=== PATIENT | female | born 1995 | race Caucasian/White ===

== ENCOUNTER → 2016-11-23 | Outpatient (CLI) | payer OTHER ==
--- NOTE | 2016-11-24 09:00 | US ---
EXAMINATION TYPE: US pelvic complete DATE OF EXAM: 11/23/2016 COMPARISON: Pelvic ultrasound 12/09/2012 CLINICAL HISTORY: R10.2 Pelvic Pain. Pelvic pain, worse on the left. Irregular menses TECHNIQUE: Transabdominal (TA) Date of LMP: 11/23/16 EXAM MEASUREMENTS: Uterus: 7.7 x 3.0 x 4.0 cm Endometrial Stripe: 0.7 cm Right Ovary: 4.8 x 2.0 x 2.5 cm Left Ovary: 4.5 x 1.5 x 3.3 cm 1. Uterus: Anteverted wnl 2. Endometrium: appears wnl 3. Right Ovary: follicles noted 4. Left Ovary: dominant follicle = 1.9 x 1.3 x 1.5cm 5. Bilateral Adnexa: small amount of free fluid left adnexa 6. Posterior cul-de-sac: appears wnl IMPRESSION: Left ovarian cystic focus may represent involuting follicle or hemorrhagic cyst, follow-u p as indicated.
== END | disposition home or self-care (01) ==
LOC: RADUSMAIN 18:14
PROVIDERS: ATTEND Internal Medicine
DX: N83.202 Unspecified ovarian cyst, left side (principal)
CPT/HCPCS: 76856

== ENCOUNTER 2021-04-12 14:35 | Emergency (ER) | payer SELFPAY ==
[2021-04-12 15:52] VITALS: TEMP 98.4
[2021-04-12 16:15] LABS: HCT 40.5 % (34.0-46.0); HGB 13.7 gm/dL (11.4-16.0); MCH 30.1 pg (25.0-35.0); MCHC 33.9 g/dL (31.0-37.0); MCV 88.9 fL (80.0-100.0); Mean Platelet Volume 7.4; Platelet Count 297 k/uL (150-450); RBC 4.55 m/uL (3.80-5.40); RDW 11.9 % (11.5-15.5); WBC 8.9 k/uL (3.8-10.6)
[2021-04-12 16:44] LABS: ALT 12 U/L (4-34); AST 23 U/L (14-36); African American GFR (CKD) >90 (>60 ml/min/1.73 sqM); Albumin 4.2 g/dL (3.5-5.0); Alkaline Phosphatase 58 U/L (38-126); Anion Gap 8 mmol/L; Blood Urea Nitrogen 6 mg/dL (7-17); Calcium 9.6 mg/dL (8.4-10.2); Carbon Dioxide 24 mmol/L (22-30); Chloride 107 mmol/L (98-107); Glucose 96 mg/dL (74-99); Non-African American GFR(CKD) >90 (>60 ml/min/1.73 sqM); Potassium 4.5 mmol/L (3.5-5.1); Sodium 139 mmol/L (137-145); Total Bilirubin 1.3 mg/dL (0.2-1.3)
--- NOTE | 2021-04-12 17:14 | ED ---
General Adult HPI - General Chief complaint: Vaginal Bleeding Stated complaint: Poss Miscarriage Time Seen by Provider: 04/12/21 17:00 Source: patient, family, RN notes reviewed, old records reviewed Mode of arrival: ambulatory Limitations: no limitations - History of Present Illness Initial comments: 25-year-old female, alert and oriented 4, presents to the emergency room with complaints of vaginal spotting since Wednesday with increased vaginal bleeding this morning, bleeding through a pad and her pants while in waiting room. She states that the blood is bright red in color. She did have an appointment with her primary care doctor this past week for confirmation of which was canceled due to the vaginal bleeding. She states the pain is left-sided and cramping in nature. Patient is a . She states she has no history of sexual transmitted infections, no dysuria. She does smoke marijuana, vape and smokes cigarettes which she states recently quit. No medications on a daily basis. She does have history of asthma. -: days(s) (5) Location: pelvis, left Severity scale (1-10): 7 Quality: other (cramping) Improves with: none Worsens with: none Associated Symptoms: other (Vaginal bleeding) Treatments Prior to Arrival: none - Related Data Home Medications Medication Instructions Recorded Confirmed [id number] Acid 1 cap PO TID 04/12/21 04/12/21 [-U Capsule (formulary)] Allergies Allergy/AdvReac Type Severity Reaction Status Date / Time cefuroxime axetil AdvReac Unknown Verified 04/12/21 19:42 [From Ceftin] Penicillins AdvReac Unknown Verified 04/12/21 19:42 Review of Systems ROS Statement: Those systems with pertinent positive or pertinent negative responses have been documented in the HPI. ROS Other: All systems not noted in ROS Statement are negative. Past Medical History Past Medical History: Asthma History of Any Multi-Drug Resistant Organisms: None Reported Past Surgical History: No Surgical Hx Reported Past Psychological History: No Psychological Hx Reported Smoking Status: Current every day smoker Past Alcohol Use History: None Reported Past Drug Use History: Marijuana General Exam Limitations: no limitations General appearance: alert, in no apparent distress Head exam: Present: atraumatic, normocephalic, normal inspection Eye exam: Present: normal appearance, EOMI ENT exam: Present: mucous membranes moist Neck exam: Present: normal inspection, full ROM. Absent: tenderness, meningismus, lymphadenopathy Respiratory exam: Present: normal lung sounds bilaterally. Absent: respiratory distress, wheezes, rales, rhonchi, stridor, chest wall tenderness, accessory muscle use Cardiovascular Exam: Present: normal rhythm, bradycardia, normal heart sounds. Absent: systolic murmur, diastolic murmur, rubs, gallop, clicks, JVD GI/Abdominal exam: Present: soft, tenderness (Left lower adnexal), normal bowel sounds. Absent: distended, guarding, rebound, rigid Extremities exam: Present: normal inspection, full ROM, normal capillary refill. Absent: tenderness, pedal edema, joint swelling, calf tenderness Neurological exam: Present: alert, oriented X3 Psychiatric exam: Present: anxious Skin exam: Present: warm, dry, intact, normal color. Absent: rash, cyanosis, diaphoretic, petechiae, pallor Course Vital Signs 04/12/21 04/12/21 04/12/21 15:49 18:14 21:58 Temperature 98.4 F Pulse Rate 49 L 62 68 Respiratory 16 18 18 Rate Blood Pressure 125/72 122/70 133/70 O2 Sat by Pulse 100 100 100 Oximetry - Reevaluation(s) Reevaluation #1: 04/12/21 18:46 Patient states she sees feeling better after Tylenol, cramping has diminished. Awaiting to go to ultrasound. Time: 18:40 Medical Decision Making - Medical Decision Making 25-year-old female presents to the emergency room with complaints of vaginal spotting since Wednesday with increased vaginal bleeding this morning. She states the pain is left-sided and cramping in nature. Patient is a . Serum hCG is 28. Hemoglobin and hematocrit are stable. Blood type is A+. Ultrasound shows a uterus that is empty, no evidence of gestational sac. There is no adnexal masses. There is no ectopic at this time. Patient states that she was bleeding heavily today and did pass a large clot. Patient states that the cramping is decreased and the bleeding has slowed to minimal. Her abdomen is soft and minimally tender left lower quadrant. This is likely a complete . Patient was given a prescription for a serum Quant redrawn in 48 hour s. Directed to follow up with her primary care doctor. Return to the emergency room with any new or worsening symptoms including increased pain, fevers or increased bleeding. Increase her fluid intake. Case discussed with Dr. Gomez - Lab Data Result diagrams: 04/12/21 16:05 04/12/21 16:05 Lab Results 04/12/21 04/12/21 04/12/21 Range/Units 16:05 16:05 16:05 WBC 8.9 (3.8-10.6) k/uL RBC 4.55 (3.80-5.40) m/uL Hgb 13.7 (11.4-16.0) gm/dL Hct 40.5 (34.0-46.0) % MCV 88.9 (80.0-100.0) fL MCH 30.1 (25.0-35.0) pg MCHC 33.9 (31.0-37.0) g/dL RDW 11.9 (11.5-15.5) % Plt Count 297 (150-450) k/uL MPV 7.4 Sodium 139 (137-145) mmol/L Potassium 4.5 (3.5-5.1) mmol/L Chloride 107 (98-107) mmol/L Carbon Dioxide 24 (22-30) mmol/L Anion Gap 8 mmol/L BUN 6 L (7-17) mg/dL Creatinine 0.69 (0.52-1.04) mg/dL Est GFR (CKD-EPI)AfAm >90 (>60 ml/min/1.73 sqM) Est GFR (CKD-EPI)NonAf >90 (>60 ml/min/1.73 sqM) Glucose 96 (74-99) mg/dL Calcium 9.6 (8.4-10.2) mg/dL Total Bilirubin 1.3 (0.2-1.3) mg/dL AST 23 (14-36) U/L ALT 12 (4-34) U/L Alkaline Phosphatase 58 (38-126) U/L Total Protein 7.0 (6.3-8.2) g/dL Albumin 4.2 (3.5-5.0) g/dL HCG, Quant mIU/mL Urine Color Urine Appearance (Clear) Urine pH (5.0-8.0) Ur Specific [place] (1.001-1.035) Urine Protein (Negative) Urine Glucose (UA) (Negative) Urine Ketones (Negative) Urine Blood (Negative) Urine Nitrite (Negative) Urine Bilirubin (Negative) Urine Urobilinogen (<2.0) mg/dL Ur Leukocyte Esterase (Negative) Urine RBC (0-5) /hpf Urine WBC (0-5) /hpf Ur Squamous Epith Cells (0-4) /hpf Urine Bacteria (None) /hpf Urine Mucus (None) /hpf Urine HCG, Qual (Not Detectd) Blood Type A Positive Blood Type Recheck No Previous Record Bld Type Recheck Status [facility] ONLY 04/12/21 04/12/21 04/12/21 Range/Units 16:05 17:54 17:54 WBC (3.8-10.6) k/uL RBC (3.80-5.40) m/uL Hgb (11.4-16.0) gm/dL Hct (34.0-46.0) % MCV (80.0-100.0) fL MCH (25.0-35.0) pg MCHC (31.0-37.0) g/dL RDW (11.5-15.5) % Plt Count (150-450) k/uL MPV Sodium (137-145) mmol/L Potassium (3.5-5.1) mmol/L Chloride (98-107) mmol/L Carbon Dioxide (22-30) mmol/L Anion Gap mmol/L BUN (7-17) mg/dL Creatinine (0.52-1.04) mg/dL Est GFR (CKD-EPI)AfAm (>60 ml/min/1.73 sqM) Est GFR (CKD-EPI)NonAf (>60 ml/min/1.73 sqM) Glucose (74-99) mg/dL Calcium (8.4-10.2) mg/dL Total Bilirubin (0.2-1.3) mg/dL AST (14-36) U/L ALT (4-34) U/L Alkaline Phosphatase (38-126) U/L Total Protein (6.3-8.2) g/dL Albumin (3.5-5.0) g/dL HCG, Quant 27.8 mIU/mL Urine Color Light Yellow Urine Appearance Clear (Clear) Urine pH 6.0 (5.0-8.0) Ur Specific [place] 1.006 (1.001-1.035) Urine Protein Negative (Negative) Urine Glucose (UA) Negative (Negative) Urine Ketones Negative (Negative) Urine Blood Large H (Negative) Urine Nitrite Negative (Negative) Urine Bilirubin Negative (Negative) Urine Urobilinogen <2.0 (<2.0) mg/dL Ur Leukocyte Esterase Negative (Negative) Urine RBC 1 (0-5) /hpf Urine WBC <1 (0-5) /hpf Ur Squamous Epith Cells <1 (0-4) /hpf Urine Bacteria Rare H (None) /hpf Urine Mucus Rare H (None) /hpf Urine HCG, Qual Detected (Not Detectd) Blood Type Blood Type Recheck Bld Type Recheck Status Disposition Clinical Impression: Complete Clinical Impression: (Ruled Out): UTI (urinary tract infection) Disposition: HOME SELF-CARE Condition: Good Additional Instructions: Increase your fluid intake and follow-up with your primary care doctor next week. Return to the emergency room with any new or worsening symptoms. Is patient prescribed a controlled substance at d/c from ED?: No Referrals: None,Stated [Primary Care Provider] - 1-2 days Time of Disposition: 21:17
[2021-04-12] MEDS: ACETAMINOPHEN TAB 500 MG TAB PO STA (18:10)
[2021-04-12] MEDS: SODIUM CHLORIDE 0.9% 500 ML 500 ML IV STA (18:12)
[2021-04-12 18:16] VITALS: RESP 18
[2021-04-12 18:19] LABS: Appearance,Urine Clear (Clear); Bacteria,Urine Rare /hpf; Bilirubin,Urine Negative (Negative); Blood,Urine Large (Negative); Color,Urine Light Yellow; Glucose,Urine (UA) Negative (Negative); Ketones,Urine Negative (Negative); Leukocyte Esterase,Urine Negative (Negative); Mucus,Urine Rare /hpf; Nitrite,Urine Negative (Negative); Protein,Urine Negative (Negative); RBC,Urine 1 /hpf (0-5); Specific Gravity,Urine 1.006 (1.001-1.035); Squamous Epithelial Cell,Urine <1 /hpf (0-4); Urobilinogen,Urine <2.0 mg/dL (<2.0); WBC,Urine <1 /hpf (0-5)
--- NOTE | 2021-04-12 21:09 | US ---
EXAMINATION TYPE: Transabdominal DATE OF EXAM: 04/12/2021 8:33 PM COMPARISON: NONE CLINICAL HISTORY: bleeding. EC patient with Vaginal bleeding iduring x 5 days; EXAM PERFORMED: Transvaginal (TV) and Transabdominal (TA) EXAM MEASUREMENTS: GESTATIONAL AGE / DATING Physician Established: Not yet established Dates by LMP: (10 weeks/6 days) EDC: 11/02/2021 Dates by First Scan: No previous Dates by Current Scan for: No IUP seen at this time. No ectopic is seen at this time. MATERNAL ANATOMY Uterus: 6.5 x 4.4 x 2.9cm. Endometrial thickness is variable with thickness superiorly = 0.6cm and in feriorly where lobular thickening is noted it measures 1.4cm. Right Ovary: 3.5 x 2.4 x 1.9cm; involuting cyst seen = 0.8 x 0.7 x 0.9cm Left Ovary: 3.2 x 1.8 x 1.5cm Post CDS / Adnexa: wnl Presence of free fluid: no Presence of corpus luteal cyst: not identified GESTATION / SURVEY: no IUP or ectopic is seen. Date of LMP: 01/26/2021 Beta HcG (if available): 27.8mIU/mL per EC data today IMPRESSION: Uterus is empty. No evidence of a gestational sac. No adnexal mass.
[2021-04-12] MEDS: cefTRIAXone 1,000 MG VIAL (IM USE) IM STA (21:52)
[2021-04-12 22:00] VITALS: BP 133/70; PULSE 68
== END 2021-04-12 22:00 | disposition home or self-care (01) ==
LOC: EC 14:35
DX: O03.9 Complete or unspecified spontaneous abortion without complication (principal); J45.909 Unspecified asthma, uncomplicated; F17.200 Nicotine dependence, unspecified, uncomplicated; F12.90 Cannabis use, unspecified, uncomplicated
CPT/HCPCS: 36415; 86900; 86901; 80053; 85027; 81001; 81025; 84702; 76801; 76817; 99284; 96372; J0696

== ENCOUNTER → 2021-04-14 | Outpatient (CLI) | payer SELFPAY | END | disposition home or self-care (01) | LOC: LABWHC1 12:00 | PROVIDERS: ATTEND Nurse Practitioner Family | DX: O20.0 Threatened abortion (principal); Z3A.00 Weeks of gestation of pregnancy not specified | CPT/HCPCS: 36415; 84702 ==

== ENCOUNTER → 2021-09-02 | Outpatient (CLI) | payer SELFPAY | END | disposition home or self-care (01) | LOC: LABWHC1 11:15 | PROVIDERS: ATTEND Physician Assistant | DX: O20.0 Threatened abortion (principal); Z3A.00 Weeks of gestation of pregnancy not specified | CPT/HCPCS: 36415; 84702 ==

== ENCOUNTER 2022-05-22 15:58 | Outpatient (CLI) | payer OTHER ==
[2022-05-22 16:57] VITALS: BP 121/75; PULSE 124; RESP 16; TEMP 97.9
--- NOTE | 2022-06-17 07:48 | P.MSEPDOC ---
Presenting Problems - Arrival Data Date of Arrival on Unit: 05/22/22 Time of Arrival on Unit: 15:58 Mode of Transport: Ambulatory - Complaint OB-Reason for Admission/Chief Complaint: Rule Out SROM Medical History - Information : 3 Para: 0 Number of Living Children: 0 - Gestational Age Gestational Age by MADHU (wks/days): 37 Weeks and 3 Days Review of Systems - Review of Systems Constitutional: No problems Breast: No problems ENT: No problems Cardiovascular: No problems Respiratory: No problems Gastrointestinal: No problems Genitourinary: No problems Musculoskeletal: No problems Neurological: No problems Skin: No problems Vital Signs - Temperature Temperature: 97.9 F Temperature Source: Axillary - Pulse Right Sitting Brachial Pulse Rate: 124 Pulse Assessment Method: Automatic Cuff - Respirations Respiratory Rate: 16 Oxygen Delivery Method: Room Air - Blood Pressure Right Arm Sitting Blood Pressure: 121/75 Blood Pressure Mean: 90 Blood Pressure Source: Automatic Cuff Medical Screen Scoring - Cervical Exam Dilation (cm): 1 Effacement (%): 90 Station: -2 Membranes: Intact - Assessment - Baby A Baseline FHR: 150 Heart Rate - NICHD Category: Category I (Normal) NST: Reactive Physician Notification - Physician Notified Physician Notified Date: 05/22/22 Physician Notified Time: 16:33 New Order Received: Yes Maternal Triage Index - Maternal Triage Index Presenting for scheduled procedure w/no complaint: No - Stat/Priority 1 Stat Priority 1: No - Urgent/Priority 2 Urgent Priority 2: No - Prompt/Priority 3 Prompt Priority 3: No - Non-Urgent/Priority 4 Non-Urgent Priority 4: Yes Criteria Met for Priority 4: possible ROM Disposition - Disposition OB Disposition: Discharge to home Discharge Date: 05/22/22 Discharge Time: 16:36 I agree with the RN Medical Screening Exam: Yes Case reviewed; plan agreed upon as documented in EMR&OBIX.: Yes Diagnosis: FALSE LABOR AT OR AFTER 37 COMPLETED WEEKS OF GESTATION
== END 2022-05-22 16:36 | disposition home or self-care (01) ==
LOC: FBPOP 15:58
PROVIDERS: ATTEND Obstetrics & Gynecology
DX: O47.1 False labor at or after 37 completed weeks of gestation (principal); Z3A.37 37 weeks gestation of pregnancy; Z88.0 Allergy status to penicillin; Z88.1 Allergy status to other antibiotic agents; O99.333 Smoking (tobacco) complicating pregnancy, third trimester
CPT/HCPCS: 59025; G0463; 99213